=== PATIENT | male | born 1945 | race American Indian/Alaskan Native ===

== ENCOUNTER 2017-05-21 06:00 | Emergency (ER) | payer SELFPAY ==
[2017-05-21 06:20] VITALS: BP 155/104
[2017-05-21 07:01] LABS: Bilirubin,Urine NEG (Negative); Blood,Urine LG (Negative); Ketones,Urine NEG (Negative); Leukocyte Esterase,Urine NEG (Negative); Nitrite,Urine NEG (Negative); Protein,Urine <15 mg/dL mg/dL (Negative); RBC,Urine < 1.0 /HPF (0.0-6.0); Urobilinogen,Urine < 2.0 mg/dL (<2.0)
[2017-05-21 07:13] LABS: Basophils % (Auto) 0.3 % (0.0-1.8); Eosinophils % (Auto) 0.5 % (0.0-4.3); Hematocrit 41.5 % (35.5-45.6); Mean Corpuscular HGB Conc 34 % (32-34); Mean Corpuscular Hemoglobin 34 pg (28-32); Mean Corpuscular Volume 100 fl (84-94); Platelet Count 219 K/mm3 (140-440); Red Blood Count 4.16 M/mm3 (3.65-5.03); Red Cell Distribution Width 13.3 % (13.2-15.2); White Blood Count 7.9 K/mm3 (4.5-11.0)
[2017-05-21 07:18] LABS: Anion Gap 17 mmol/L; Blood Urea Nitrogen 13 mg/dL (9-20); Calcium 8.9 mg/dL (8.4-10.2); Carbon Dioxide 24 mmol/L (22-30); Chloride 99.8 mmol/L (98-107); Glucose 144 mg/dL (75-100); Potassium 3.7 mmol/L (3.6-5.0); Sodium 137 mmol/L (137-145)
--- NOTE | 2017-05-21 09:16 | Emergency Department Report ---
HPI - General Chief Complaint: Urogenital-Male Time Seen by Provider: 05/21/17 09:05 - HPI HPI: Room 25 The patient is a 71-year-old male presenting with a chief complaint of urinary retention. There is a noted difficulty urinating last night. Patient states last time he was able to urinate was between 23:00 and midnight. He states he took [id number] prostate support medication but it did not help. Patient began having suprapubic tightness/discomfort prompting him to come to the ED. Patient had a Carr catheter placed prior to my arrival and now states he feels "much better." Patient denies complaints Location: Suprapubic Duration: Constant since 00:00 Quality: Tightness Severity: Moderate Modifying factors: [see above] Context: [see above] Mode of transportation: Unknown ED Past Medical Hx - Past Medical History Hx Arthritis: Yes Additional medical history: BPH - Surgical History Past Surgical History?: No - Family History Family history: no significant - Social History Smoking Status: Never Smoker Substance Use Type: None (denies illicit drug use), Alcohol (occasional) ED Review of Systems ROS: Stated complaint: URINARY RETENTION Other details as noted in HPI Comment: All other systems reviewed and negative Constitutional: denies: chills, fever Eyes: denies: eye pain, eye discharge, vision change ENT: denies: ear pain, throat pain Respiratory: denies: cough, shortness of breath, wheezing Cardiovascular: denies: chest pain, palpitations Endocrine: no symptoms reported Gastrointestinal: abdominal pain. denies: nausea, diarrhea Genitourinary: other (urinary retention) Musculoskeletal: denies: back pain, joint swelling, arthralgia Skin: denies: rash, lesions Neurological: denies: headache, weakness, paresthesias Psychiatric: denies: anxiety, depression Hematological/Lymphatic: denies: easy bleeding, easy bruising Physical Exam - Physical Exam Vital Signs: Vital Signs 05/21/17 06:16 Temperature 97.6 F Pulse Rate 88 Respiratory 18 Rate Blood Pressure 155/104 O2 Sat by Pulse 98 Oximetry Physical Exam: GENERAL: The patient is well-developed well-nourished male lying on stretcher not appearing to be in acute distress. [] HEENT: Normocephalic. Atraumatic. Extraocular motions are intact. NECK: Supple. Trachea midline CHEST/LUNGS: There is no respiratory distress noted. HEART/CARDIOVASCULAR: Regular. There is no tachycardia. There is no gallop rub or murmur. ABDOMEN: Abdomen is soft, nontender. Patient has normal bowel sounds. There is no abdominal distention. SKIN: There is no diaphoresis. NEURO: The patient is awake, alert, and oriented. The patient is cooperative. The patient has normal speech MUSCULOSKELETAL: There is no evidence of acute injury. ED Course Vital Signs 05/21/17 06:16 Temperature 97.6 F Pulse Rate 88 Respiratory 18 Rate Blood Pressure 155/104 O2 Sat by Pulse 98 Oximetry ED Medical Decision Making - Lab Data Result diagrams: 05/21/17 06:51 05/21/17 06:51 Laboratory Tests 05/21/17 05/21/17 05/21/17 06:33 06:51 06:51 WBC 7.9 RBC 4.16 Hgb 14.0 Hct 41.5 MCV 100 H MCH 34 H MCHC 34 RDW 13.3 Plt Count 219 Lymph % (Auto) 14.4 [place] % (Auto) 8.4 H Eos % (Auto) 0.5 Baso % (Auto) 0.3 Lymph # 1.1 L [place] # 0.7 Eos # 0.0 Baso # 0.0 Seg Neutrophils % 76.4 H Seg Neutrophils # 6.0 Sodium 137 Potassium 3.7 Chloride 99.8 Carbon Dioxide 24 Anion Gap 17 BUN 13 Creatinine 1.0 Estimated GFR > 60 BUN/Creatinine Ratio 13.00 Glucose 144 H Calcium 8.9 Urine Color Straw Urine Turbidity Clear Urine pH 6.0 Ur Specific [place] 1.005 Urine Protein <15 mg/dl Urine Glucose (UA) Neg Urine Ketones Neg Urine Blood Lg Urine Nitrite Neg Urine Bilirubin Neg Urine Urobilinogen < 2.0 Ur Leukocyte Esterase Neg Urine WBC (Auto) 5.0 Urine RBC (Auto) < 1.0 Amorphous Crystals Few Hyaline Casts 1 - Differential Diagnosis urinary retention, UTI Critical care attestation.: If time is entered above; I have spent that time in minutes in the direct care of this critically ill patient, excluding procedure time. ED Disposition Clinical Impression: Urinary retention Disposition: DC-01 TO HOME OR SELFCARE Is pt being admited?: No Does the pt Need Aspirin: No Condition: Stable Instructions: Urinary Retention in Men (ED), Urinary Leg Bag (GEN), Carr Catheter Placement and Care (ED) Additional Instructions: Return to the emergency department immediately should you develop worsening symptoms, fever, inability to tolerate food or liquid or any other concerns. Referrals: PRIMARY CARE, [Primary Care Provider] - 3-5 Days TIMMY KINNEY MD [Staff Physician] - [facility] (Dr. Kinney is a urologist. Please follow up with him for further evaluation) Time of Disposition: 09:18
== END 2017-05-21 09:30 | disposition home or self-care (01) ==
LOC: ED 06:00
DX: R33.9 Retention of urine, unspecified (principal); M19.90 Unspecified osteoarthritis, unspecified site
CPT/HCPCS: 36415; 80048; 81001; 85025; 99283